=== PATIENT | female | born 1980 | race Caucasian/White ===

== ENCOUNTER 2018-06-29 09:46 | Day surgery (SDC) | payer OTHER ==
--- NOTE | 2018-06-28 21:15 | PDGENHP ---
History and Physical - Chief Complaint RIGHT HIP PAIN - History of Present Illness 1.~~~Bilateral~BL~Hip Dyplasia; RIGHT MORE SYMPTOMATIC 2.~~~Bilateral~Femoroacetabular impingement (ANDREW) Cam type,~with~resultant labral tear 3. Radiographic signs of Osteitis pubis HISTORY OF PRESENT ILLNESS: Lucasis a 37 y.o.~active female~who I have had the pleasure to consult on today. 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 ~Lucasenjoys walking, hiking, yoga and weight lifting. Dasia's~bilateral~hip pain (RIGHT>LEFT)~started several years ago, with~no~ recalled trauma or injury, and with no~previous complaints. Lucashas~a known history of hip dysplasia. 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 Presentation today is of~anterior, posterior, lateral~bilateral~hip pain.~~The hip~does~wake her~at night and does~click and catch on her. Sitting~does not present a problem~for her.~Lucasdoes not~report suffering from lower back pain episodes. Lucashas~participated in physical therapy (8 weeks)~and has not~tried other conservative measures. She~has not~received sufficient symptomatic improvement. Lucashas not~utilized medication for pain management.~ Lucasunderstands that she~has a hip and pelvis problem which should be researched and wishes to get a better understanding of her~hip status, followed by an establishment of a treatment strategy, hoping she~would be able to get back to her~well being active life. History: Past medical history:~~ None which is relevant~ Relevant familial history:~Sister with hip dysplasia Past surgical history:~ None Lucashas never received general anesthesia. I have reviewed, verified and agree with the past medical, surgical, family and social history. Current Medications:~has a current medication list which includes the following prescription(s): ibuprofen. ALLERGIES:~has No Known Allergies. Objective: Physical Examination: Lucasis 5~feet 9~inches tall and weighs 135~Lbs. Dasia~is AAO x3; she~is well- nourished, in NAD. Skin is warm and dry. ~Breathing is non-labored. ~CV with RRR by pulse. Abdomen is soft, NTND. Currently,~she~walks with a normal~gait. Trendelenburg sign is~negative~and proprioception is reduced,~right~side. She~presents with mild~signs of joint laxity. Beightons Score:~2 Lower spine examination is~negative~for sciatic or femoral nerve irritation with negative~SLR &~femoral stretch tests. Range of motion of the spine is normal~for flexion, extension, and rotations, with no~associated pain. Strength, Sensation and pulses are~normal -~bilaterally Ankles and knees exams are~normal~and no~mal-alignment is evident. She~has~right~1~cm short leg length discrepancy. Thigh circumference is~symmetric~with no evidence for muscle atrophy~on both~ sides. Hip ROM (degrees): FL ER At 90~hip FL IR At 90~hip FL AB AD EX IR Neutral hip ER Neutral hip R 110 40 40 35 10 10 50-55 20 L 110 50 30 30 5 10 50-55 25 Specific hip and pelvis tests: Impingement Test EVELYN Roll Add. Longus R +++ +++ Negative Negative L Negative Negative Negative Negative Glut. Med ITB R Negative 5/5 strength Negative 5/5 strength L +++ 5/5 strength +++ 5/5 strength Squeeze test measured~normal Bony Symphysis pubis is~pain free~to touch while concentric activity of the rectus abdominis, does not~produce pain at its insertion. Ilio Psos specific tests are~negative for pain during cycling for~both hips~and no snap. posterior~capsule tenderness RIGHT HIP Greater trochanteric burse is~pain free~on both hips. Piriformis tests: FAIR is~negative,~with no~local signs of neuritis related to sciatic nerve. SIJs examination is~normal~with normal~EVELYN in relation and local tenderness. Hamstrings tests are~negative~functional contraction and negative~tendinopathy both hips. Imaging: Radiology studies which I have personally reviewed, analyzed and measured are below: XR: AP of the hip and pelvis: Performed in a~good~technique Coccyx to pubic symphysis distance~1~cm. 0~degrees [place] Lines are~preserved. Minimal~Pathological signs are seen in the Symphysis Pubis. Minimal~Pathological signs are seen at the Ischial tuberosity. ~ Specific measurements show: NSA~ LCE Sourcil~Angle Sharp's angle Lat. Cam Lat. Pincer C.Over~sign Head~Coverage % ATDmm R N 24 7 45 + - - 74 N L N 22 10 44 + - - 74 N Pos. wall sign ISS NAD ~~Dysplasia Comments R Negative Negative 23.6~mm ++ L Negative Negative 20.5~mm ++ Sclerosis Sup. Lat. OA Cysts Joint Space-WBZ Joint Space-Medial R Negative Negative Negative 4.1~mm 4.4~mm L Negative Negative Negative 4.1~mm 4.7~mm Osteitis pubis X Table lateral: Anterior cam lesion is~seen~on both hips. Alpha Angle: ~ Right~54~dergrees Left~55~degrees Impression and plan: ~ Lucasis a 37 y.o.~active female~suffering from symptomatic Bilateral~hip pain due to BL~Hip Dyplasia~and~Femoroacetabular impingement (ANDREW)~Cam type,~with~ resultant labral tear~causing significant disability to her~and altering her~ sport and life activities. Physical examination, imaging, and~her~story correspond with the diagnosis mentioned above. I explained that hip dysplasia is a condition wherein the hip joint has excessive play~and instability due to a variety of factors, including the depth and adequacy of the socket, the orientation of the femur bone, and ligament laxity around the hip joint. Dysplasia ranges in severity from borderline to cynthia, with treatment options being specific to the specific nature of the problem. Left untreated, the instability in the hip joint can cause progressive tearing of the labrum and deterioration of the surface cartilage, ultimately resulting in progressive osteoarthritis of the hip. I explained that femoroacetabular impingement (ANDREW - Cam type) arises due to a bony or soft tissue conflict between the femur (ball) and acetabulum (socket) caused by an abnormality in the shape of the femoral head and neck. Over time, repetitive impingement can result in damage to the labrum and adjacent surface cartilage within the socket, ultimately giving rise to progressive osteoarthritis of the hip. I explained that although a labral tear can be a source of pain, it is rarely the root of the problem and typically occurs secondary to an underlying abnormality in the shape and mechanics of the hip joint. I reviewed conservative treatment options for Dysplasia and ANDREW including activity modification to avoid positions of impingement or instability, physical therapy, non-steroidal anti-inflammatory medications, and various injections (corticosteroid and PRP) aimed at reducing inflammation in the hip joint or/and preventing dynamic instability and impingement. PRP injections may promote healing and reduce symptoms in certain cases but it will not repair chronically damaged tissue. Although these measures may help to buy time~and reduce current level of symptoms, they are not a definitive solution to the problem given the underlying abnormality in the shape of the hip joint. Patients who have failed conservative management and continue to experience symptoms are candidates for definitive surgical treatment, which may consist of hip arthroscopy alone or in combination with more invasive bony realignment procedures of the hip socket and/or femur called periacetabular osteotomy (ZECHARIAH) or derotational femoral osteotomy (DFO). Hip arthroscopy typically includes treating the labrum with either repair or reconstruction of the torn labrum; as well as addressing the underlying abnormalities by restoring the normal shape to the hip joint. If the cartilage is damaged a Microfracture surgical procedure may also be necessary to help stimulate the growth of fibrocartilage. If a patient requires a labral reconstruction or a Microfracture, the initial rehabilitation from the surgery may take longer, but the shelter results are typically favorable. Dasia~will review the info presented. In order to obtain more detailed information regarding the alignment, orientation, and shape of the bony hip and pelvis I will order a CT scan to be performed. The results of the CT scan, including femoral torsion and acetabular version measured values and 3D images, will aid me in deciding on the best treatment strategy and surgical pre-planning.~ In order to better evaluate the soft tissues and cartilage of the hip joint, I will order an MRI scan. Lucasis going to contact us after completing her~imaging studies. Lucasis happy with this plan. I have also supplied~her~with handouts, outlining the expected surgical treatment and rehab involved. I wish~Lucasall the best, ~~ Toni Clement, PAC History Information - Allergies/Home Medication List Allergies/Adverse Reactions: No Known Allergies Allergy (Verified 06/26/18 16:48) Home Medications: Cymbalta 30 MG (*) 06/26/18 [Last Taken Unknown] I have personally reviewed and updated: medical history - Social History Smoking Status: Former smoker Review of Systems Review of Systems: Physical Exam Physical Exam:
[2018-06-29] MEDS ORDERED: ceFAZolin 2 GM/DEXTROSE 100 ML IV ONE (09:51)
[2018-06-29] MEDS ORDERED: ACETAMINOPHEN 500 MG TAB PO ONE (09:51)
[2018-06-29] MEDS ORDERED: PREGABALIN 150 MG CAP PO ONE (09:51)
[2018-06-29] MEDS ORDERED: LR 1,000 ML IV ONE (09:52)
[2018-06-29] MEDS ORDERED: MIDAZOLAM 2 MG/2 ML VIAL IVP ONE (10:08)
--- NOTE | 2018-06-29 10:10 | PDANEPAE ---
ANE History of Present Illness Right hip pain ANE Past Medical History - Cardiovascular History Hx Hypertension: No Hx Arrhythmias: No Hx Chest Pain: No Hx Coronary Artery / Peripheral Vascular Disease: No Hx CHF / Valvular Disease: No Hx Palpitations: No Cardiovascular History Comment: BP RUNS LOW AND HAS CAUSED HOSPITALIZATION A COUPLE OF TIMES - Pulmonary History Hx COPD: No Hx Asthma/Reactive Airway Disease: No Hx Recent Upper Respiratory Infection: No Hx Oxygen in Use at Home: No Hx Sleep Apnea: No Sleep Apnea Screening Result - Last Documented: Negative - Neurologic History Hx Cerebrovascular Accident: No Hx Seizures: No Hx Dementia: No Neurologic History Comment: MIGRAINES - Endocrine History Hx Diabetes: No Hypothyroid: No Hyperthyroid: No Obesity: no - Renal History Hx Renal Disorders: No - Liver History Hx Hepatic Disorders: No - Neurological & Psychiatric Hx Hx Neurological and Psychiatric Disorders: Yes Neurological / Psychiatric History Comment: ANXIETY. DEPRESSION - Cancer History Hx Cancer: No - Congenital Disorder History Hx Congenital Disorders: No - GI History GERD: no Hx Gastrointestinal Disorders: No - Other Health History Other Health History: WEARS GLASSES/ CONTACTS - Chronic Pain History Chronic Pain: Yes (BILATERAL HIPS) - Surgical History Prior Surgeries: N/A ANE Review of Systems Review of systems is: negative Review of Systems: - Exercise capacity Exercise capacity: >=4 METS METS (RN): 4 METS ANE Patient History - Allergies Allergies/Adverse Reactions: No Known Allergies Allergy (Verified 06/26/18 16:48) - Home Medications Home medications: home medication list seen and reviewed Home Medications: Cymbalta 30 MG (*) 06/26/18 [Last Taken Unknown] - Family Anes Hx Family Anes Hx: none Family Hx Anesthesia Complications: NONE ANE Labs/Vital Signs - Vital Signs Height: 175.26 cm Weight: 61.235 kg ANE Physical Exam - Airway Neck exam: FROM Mallampati Score: Class 2 Mouth exam: normal dental/mouth exam, small mouth opening - Pulmonary Pulmonary: no respiratory distress - Cardiovascular Cardiovascular: regular rate and rhythym - ASA Status ASA Status: I ANE Anesthesia Plan Anesthesia Plan: general endotracheal anesthesia
[2018-06-29] MEDS ORDERED: fentaNYL 100 MCG/2 ML INJ ONE ×2 (10:19→13:07)
[2018-06-29] MEDS ORDERED: PROPOFOL 200 MG/20 ML VIAL ONE (10:19)
[2018-06-29] MEDS ORDERED: LIDOCAINE 2% 2 ML INJ ONE ×2 (10:22)
[2018-06-29] MEDS ORDERED: ROCURONIUM 50 MG/5 ML VIAL ONE (10:23)
[2018-06-29] MEDS ORDERED: ONDANSETRON 4 MG/2 ML VIAL ONE (10:24)
[2018-06-29] MEDS ORDERED: BUPIVACAINE/EPI 0.25% 30 ML SDV ONE (11:52)
[2018-06-29] MEDS ORDERED: EPINEPHrine 30 MG/30 ML MDV (0.1 MG/0.1 ML) ONE (11:52)
[2018-06-29] MEDS ORDERED: ePHEDrine SULFATE 25 MG/5 ML SYR ONE (12:15)
[2018-06-29] MEDS ORDERED: METOCLOPRAMIDE 10 MG/2 ML VIAL IVP PRN (13:23)
[2018-06-29] MEDS ORDERED: PROMETHAZINE HCL 25 MG/ML INJ IVP PRN (13:23)
[2018-06-29] MEDS ORDERED: ALBUTEROL 3 ML DEYVIAL IH PRN (13:23)
[2018-06-29] MEDS ORDERED: oxyCODONE IR 5 MG TAB PO PRN (13:23)
[2018-06-29] MEDS ORDERED: PHENYLEPHRINE HCL 100 MCG/ML SYR IVP PRN (13:23)
[2018-06-29] MEDS ORDERED: NALOXONE HCL 0.4 MG/ML INJ IVP PRN (13:23)
[2018-06-29] MEDS ORDERED: fentaNYL 100 MCG/2 ML INJ IVP PRN (13:23)
[2018-06-29] MEDS ORDERED: ACETAMINOPHEN 500 MG TAB PO PRN (13:23)
[2018-06-29] MEDS ORDERED: LR 500 ML IV PRN (13:23)
[2018-06-29] MEDS ORDERED: HYDROmorphONE/DILAUDID 2 MG/ML INJ ONE (14:49)
[2018-06-29] MEDS: HYDROmorphONE/DILAUDID 2 MG/ML INJ IVP PRN ×2 (14:51→15:02)
[2018-06-29] MEDS ORDERED: MEPERIDINE 25 MG/0.5 ML AMP ONE ×2 (14:55→15:08)
[2018-06-29] MEDS: MEPERIDINE 25 MG/0.5 ML AMP IVP PRN ×2 (14:55→15:08)
--- NOTE | 2018-06-29 15:42 | POSTOPPROG ---
Post Op Note Date of Operation: 06/29/18 Surgeon: Jordy Huertas [employer] Instructor: Dr. Isaacs Anesthesia: GET(General Endotracheal) Pre-op Diagnosis: Right ANDREW Post-op Diagnosis: Right ANDREW Procedure: Right Hip Arthroscopy Inf/Abcess present in the surg proc area at time of surgery?: No
--- NOTE | 2018-06-29 15:51 | POSTANESTH ---
Post Anesthetic Evaluation Cardiovascular Status: Normal, Stable Respiratory Status: Normal, Stable Level of Consciousness/Mental Status: Can Participate in Eval Pain Control: Adequate, Prn Tx Ordered Nausea/Vomiting Control: Adequate, Prn Tx Ordered Complications Possibly Related to Anesthesia: None Noted
[2018-06-29 17:17] VITALS: BP 117/67
== END 2018-06-29 17:15 | disposition home or self-care (01) ==
LOC: FSGY 09:46
PROVIDERS: ATTEND Orthopaedic Surgery Sports Medicine
PROC: BQ10YZZ Fluoroscopy of Right Hip using Other Contrast (ICD-10-PCS; principal; 2018-06-29 11:00)
PROC: 0SB94ZZ Excision of Right Hip Joint, Percutaneous Endoscopic Approach (ICD-10-PCS; principal; 2018-06-29 11:00)
PROC: 0SQ94ZZ Repair Right Hip Joint, Percutaneous Endoscopic Approach (ICD-10-PCS; principal; 2018-06-29 11:00)
DX: M25.851 Other specified joint disorders, right hip (principal); Q65.89 Other specified congenital deformities of hip; G43.909 Migraine, unspecified, not intractable, without status migrainosus; F41.9 Anxiety disorder, unspecified; F32.9 Major depressive disorder, single episode, unspecified; Z87.891 Personal history of nicotine dependence
CPT/HCPCS: C1713; J0171; J0690; J1170; J2175; J2250; J2405; J2704; J3010

== ENCOUNTER 2018-07-06 06:51 | Inpatient (IN) | payer OTHER ==
--- NOTE | 2018-07-05 21:22 | PDGENHP ---
History and Physical - Chief Complaint RIGHT HIP PAIN - History of Present Illness 1.~~~Bilateral~BL~Hip Dyplasia; RIGHT MORE SYMPTOMATIC 2.~~~Bilateral~Femoroacetabular impingement (ANDREW) Cam type,~with~resultant labral tear 3. Radiographic signs of Osteitis pubis HISTORY OF PRESENT ILLNESS: Lucasis a 37 y.o.~active female~who I have had the pleasure to consult on today. 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 ~Lucasenjoys walking, hiking, yoga and weight lifting. Dasia's~bilateral~hip pain (RIGHT>LEFT)~started several years ago, with~no~ recalled trauma or injury, and with no~previous complaints. Lucashas~a known history of hip dysplasia. 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 Presentation today is of~anterior, posterior, lateral~bilateral~hip pain.~~The hip~does~wake her~at night and does~click and catch on her. Sitting~does not present a problem~for her.~Lucasdoes not~report suffering from lower back pain episodes. Lucashas~participated in physical therapy (8 weeks)~and has not~tried other conservative measures. She~has not~received sufficient symptomatic improvement. Lucashas not~utilized medication for pain management.~ Lucasunderstands that she~has a hip and pelvis problem which should be researched and wishes to get a better understanding of her~hip status, followed by an establishment of a treatment strategy, hoping she~would be able to get back to her~well being active life. History: Past medical history:~~ None which is relevant~ Relevant familial history:~Sister with hip dysplasia Past surgical history:~ None Lucashas never received general anesthesia. I have reviewed, verified and agree with the past medical, surgical, family and social history. Current Medications:~has a current medication list which includes the following prescription(s): ibuprofen. ALLERGIES:~has No Known Allergies. Objective: Physical Examination: Lucasis 5~feet 9~inches tall and weighs 135~Lbs. Dasia~is AAO x3; she~is well- nourished, in NAD. Skin is warm and dry. ~Breathing is non-labored. ~CV with RRR by pulse. Abdomen is soft, NTND. Currently,~she~walks with a normal~gait. Trendelenburg sign is~negative~and proprioception is reduced,~right~side. She~presents with mild~signs of joint laxity. Beightons Score:~2 Lower spine examination is~negative~for sciatic or femoral nerve irritation with negative~SLR &~femoral stretch tests. Range of motion of the spine is normal~for flexion, extension, and rotations, with no~associated pain. Strength, Sensation and pulses are~normal -~bilaterally Ankles and knees exams are~normal~and no~mal-alignment is evident. She~has~right~1~cm short leg length discrepancy. Thigh circumference is~symmetric~with no evidence for muscle atrophy~on both~ sides. Hip ROM (degrees): FL ER At 90~hip FL IR At 90~hip FL AB AD EX IR Neutral hip ER Neutral hip R 110 40 40 35 10 10 50-55 20 L 110 50 30 30 5 10 50-55 25 Specific hip and pelvis tests: Impingement Test EVELYN Roll Add. Longus R +++ +++ Negative Negative L Negative Negative Negative Negative Glut. Med ITB R Negative 5/5 strength Negative 5/5 strength L +++ 5/5 strength +++ 5/5 strength Squeeze test measured~normal Bony Symphysis pubis is~pain free~to touch while concentric activity of the rectus abdominis, does not~produce pain at its insertion. Ilio Psos specific tests are~negative for pain during cycling for~both hips~and no snap. posterior~capsule tenderness RIGHT HIP Greater trochanteric burse is~pain free~on both hips. Piriformis tests: FAIR is~negative,~with no~local signs of neuritis related to sciatic nerve. SIJs examination is~normal~with normal~EVELYN in relation and local tenderness. Hamstrings tests are~negative~functional contraction and negative~tendinopathy both hips. Imaging: Radiology studies which I have personally reviewed, analyzed and measured are below: XR: AP of the hip and pelvis: Performed in a~good~technique Coccyx to pubic symphysis distance~1~cm. 0~degrees [place] Lines are~preserved. Minimal~Pathological signs are seen in the Symphysis Pubis. Minimal~Pathological signs are seen at the Ischial tuberosity. ~ Specific measurements show: NSA~ LCE Sourcil~Angle Sharp's angle Lat. Cam Lat. Pincer C.Over~sign Head~Coverage % ATDmm R N 24 7 45 + - - 74 N L N 22 10 44 + - - 74 N Pos. wall sign ISS NAD ~~Dysplasia Comments R Negative Negative 23.6~mm ++ L Negative Negative 20.5~mm ++ Sclerosis Sup. Lat. OA Cysts Joint Space-WBZ Joint Space-Medial R Negative Negative Negative 4.1~mm 4.4~mm L Negative Negative Negative 4.1~mm 4.7~mm Osteitis pubis X Table lateral: Anterior cam lesion is~seen~on both hips. Alpha Angle: ~ Right~54~dergrees Left~55~degrees Impression and plan: ~ Lucasis a 37 y.o.~active female~suffering from symptomatic Bilateral~hip pain due to BL~Hip Dyplasia~and~Femoroacetabular impingement (ANDREW)~Cam type,~with~ resultant labral tear~causing significant disability to her~and altering her~ sport and life activities. Physical examination, imaging, and~her~story correspond with the diagnosis mentioned above. I explained that hip dysplasia is a condition wherein the hip joint has excessive play~and instability due to a variety of factors, including the depth and adequacy of the socket, the orientation of the femur bone, and ligament laxity around the hip joint. Dysplasia ranges in severity from borderline to cynthia, with treatment options being specific to the specific nature of the problem. Left untreated, the instability in the hip joint can cause progressive tearing of the labrum and deterioration of the surface cartilage, ultimately resulting in progressive osteoarthritis of the hip. I explained that femoroacetabular impingement (ANDREW - Cam type) arises due to a bony or soft tissue conflict between the femur (ball) and acetabulum (socket) caused by an abnormality in the shape of the femoral head and neck. Over time, repetitive impingement can result in damage to the labrum and adjacent surface cartilage within the socket, ultimately giving rise to progressive osteoarthritis of the hip. I explained that although a labral tear can be a source of pain, it is rarely the root of the problem and typically occurs secondary to an underlying abnormality in the shape and mechanics of the hip joint. I reviewed conservative treatment options for Dysplasia and ANDREW including activity modification to avoid positions of impingement or instability, physical therapy, non-steroidal anti-inflammatory medications, and various injections (corticosteroid and PRP) aimed at reducing inflammation in the hip joint or/and preventing dynamic instability and impingement. PRP injections may promote healing and reduce symptoms in certain cases but it will not repair chronically damaged tissue. Although these measures may help to buy time~and reduce current level of symptoms, they are not a definitive solution to the problem given the underlying abnormality in the shape of the hip joint. Patients who have failed conservative management and continue to experience symptoms are candidates for definitive surgical treatment, which may consist of hip arthroscopy alone or in combination with more invasive bony realignment procedures of the hip socket and/or femur called periacetabular osteotomy (ZECHARIAH) or derotational femoral osteotomy (DFO). Hip arthroscopy typically includes treating the labrum with either repair or reconstruction of the torn labrum; as well as addressing the underlying abnormalities by restoring the normal shape to the hip joint. If the cartilage is damaged a Microfracture surgical procedure may also be necessary to help stimulate the growth of fibrocartilage. If a patient requires a labral reconstruction or a Microfracture, the initial rehabilitation from the surgery may take longer, but the senior care results are typically favorable. Dasia~will review the info presented. In order to obtain more detailed information regarding the alignment, orientation, and shape of the bony hip and pelvis I will order a CT scan to be performed. The results of the CT scan, including femoral torsion and acetabular version measured values and 3D images, will aid me in deciding on the best treatment strategy and surgical pre-planning.~ In order to better evaluate the soft tissues and cartilage of the hip joint, I will order an MRI scan. Lucasis going to contact us after completing her~imaging studies. Lucasis happy with this plan. I have also supplied~her~with handouts, outlining the expected surgical treatment and rehab involved. I wish~Lucasall the best, ~~ Toni Clement, PAC History Information - Allergies/Home Medication List Allergies/Adverse Reactions: No Known Allergies Allergy (Verified 07/03/18 14:38) Home Medications: Cymbalta 30 MG (*) 06/26/18 [Last Taken 06/29/18 07:30] I have personally reviewed and updated: medical history - Social History Smoking Status: Never smoked Review of Systems Review of Systems: Physical Exam Physical Exam:
[~2018-07-06 06:51] MED LIST: ACETAMINOPHEN 500 MG TAB PO ONE; LR 1,000 ML IV ONE; PREGABALIN 150 MG CAP PO ONE; SCOPOLAMINE HYDROBROMIDE 1 MG/3 DAYS PATCH TD ONE; TRANEXAMIC ACID 1,000 MG in NS 100 ML IV ONE; ceFAZolin 2 GM/DEXTROSE 100 ML IV ONE
[2018-07-06] MEDS ORDERED: CITRATE DEXTROSE SOLN 500 ML BAG ONE (07:03)
[2018-07-06] MEDS ORDERED: MIDAZOLAM 2 MG/2 ML VIAL ONE (07:05)
[2018-07-06] MEDS ORDERED: MIDAZOLAM 2 MG/2 ML VIAL IVP ONE (07:06)
--- NOTE | 2018-07-06 07:06 | PDANEPAE ---
ANE History of Present Illness Right hip ZECHARIAH for hip DJD ANE Past Medical History - Cardiovascular History Hx Hypertension: No Hx Arrhythmias: No Hx Chest Pain: No Hx Coronary Artery / Peripheral Vascular Disease: No Hx CHF / Valvular Disease: No Hx Palpitations: No Cardiovascular History Comment: bp runs low and has caused hospitalization a couple of times - Pulmonary History Hx COPD: No Hx Asthma/Reactive Airway Disease: No Hx Recent Upper Respiratory Infection: No Hx Oxygen in Use at Home: No Hx Sleep Apnea: No Sleep Apnea Screening Result - Last Documented: Negative - Neurologic History Hx Cerebrovascular Accident: No Hx Seizures: No Hx Dementia: No Neurologic History Comment: hx of migraines - Endocrine History Hx Diabetes: No - Renal History Hx Renal Disorders: No - Liver History Hx Hepatic Disorders: No - Neurological & Psychiatric Hx Hx Neurological and Psychiatric Disorders: Yes Neurological / Psychiatric History Comment: anxiety. depression - Cancer History Hx Cancer: No - Congenital Disorder History Hx Congenital Disorders: Yes Congenital History Comment: hip dysplasia - GI History Hx Gastrointestinal Disorders: No - Other Health History Other Health History: wears glasses/ contacts - Chronic Pain History Chronic Pain: Yes (bilateral hips) - Surgical History Prior Surgeries: 06/29/18 right hip scope with Aleksandar ALEXANDRE Review of Systems Review of Systems: - Exercise capacity METS (RN): 4 METS ANE Patient History - Allergies Allergies/Adverse Reactions: No Known Allergies Allergy (Verified 07/03/18 14:38) - Home Medications Home Medications: Cymbalta 30 MG (*) 06/26/18 [Last Taken 06/29/18 07:30] - Smoking Hx Smoking Status: Never smoked - Family Anes Hx Family Hx Anesthesia Complications: none ANE Labs/Vital Signs - Vital Signs Height: 175.26 cm Weight: 61.235 kg ANE Physical Exam - Airway Neck exam: FROM Mallampati Score: Class 1 Mouth exam: normal dental/mouth exam - Pulmonary Pulmonary: no respiratory distress - Cardiovascular Cardiovascular: regular rate and rhythym - ASA Status ASA Status: I ANE Anesthesia Plan Anesthesia Plan: general endotracheal anesthesia Total IV Anesthesia: No
[2018-07-06] MEDS ORDERED: ROCURONIUM 100 MG/10 ML VIAL ONE (07:11)
[2018-07-06] MEDS ORDERED: PHENYLEPHRINE 10 MG/ML SDV ONE ×2 (07:11→11:10)
[2018-07-06] MEDS ORDERED: LIDOCAINE 2% 5 ML SDV ONE (07:11)
[2018-07-06] MEDS ORDERED: PROPOFOL 200 MG/20 ML VIAL ONE ×2 (07:12→12:05)
[2018-07-06] MEDS ORDERED: fentaNYL 100 MCG/2 ML INJ ONE (07:12)
[2018-07-06] MEDS ORDERED: morphINE PF 5 MG/10 ML INJ ONE (07:15)
[2018-07-06] MEDS ORDERED: ONDANSETRON 4 MG/2 ML VIAL ONE (11:09)
[2018-07-06] MEDS ORDERED: ROCURONIUM 50 MG/5 ML VIAL ONE (11:09)
[2018-07-06] MEDS ORDERED: DEXAMETHASONE 4 MG/ML VIAL ONE (11:09)
[2018-07-06] MEDS ORDERED: NALOXONE HCL 0.4 MG/ML INJ IVP PRN ×3 (11:56→15:30)
[2018-07-06] MEDS ORDERED: DIAZEPAM 5 MG/ML 1 ML SYR IVP PRN (11:56)
[2018-07-06] MEDS ORDERED: oxyCODONE IR 5 MG TAB PO PRN (11:56)
[2018-07-06] MEDS ORDERED: fentaNYL 100 MCG/2 ML INJ IVP PRN (11:56)
[2018-07-06] MEDS ORDERED: PROMETHAZINE HCL 25 MG/ML INJ IVP PRN (11:56)
[2018-07-06] MEDS ORDERED: MEPERIDINE 25 MG/0.5 ML AMP IVP PRN (11:56)
[2018-07-06] MEDS ORDERED: SUGAMMADEX SODIUM 200 MG/2 ML VIAL IVP ONE (12:05)
--- NOTE | 2018-07-06 12:32 | POSTANESTH ---
Post Anesthetic Evaluation Cardiovascular Status: Normal, Stable Respiratory Status: Normal, Stable Level of Consciousness/Mental Status: Can Participate in Eval Pain Control: Adequate, Prn Tx Ordered Nausea/Vomiting Control: Adequate, Prn Tx Ordered Complications Possibly Related to Anesthesia: None Noted (Awake and responsive in OR, neuro exam by PA intact)
[2018-07-06] MEDS ORDERED: LACTULOSE 20 GM/30 ML UDCUP PO PRN (12:33)
[2018-07-06] MEDS ORDERED: ONDANSETRON DISINTEGRATING 4 MG TAB PO PRN (12:33)
[2018-07-06] MEDS ORDERED: BISACODYL 10 MG SUPP PR PRN (12:33)
[2018-07-06] MEDS ORDERED: ACETAMINOPHEN 325 MG TAB PO PRN (12:33)
[2018-07-06] MEDS ORDERED: ONDANSETRON 4 MG/2 ML VIAL IVP PRN ×2 (12:33→15:30)
[2018-07-06] MEDS ORDERED: MAGNESIUM HYDROXIDE 30 ML UDCUP PO PRN (12:33)
[2018-07-06] MEDS ORDERED: HYDROmorphONE/DILAUDID 6 MG/30 ML PCA IV PRN (12:33)
[2018-07-06] MEDS ORDERED: PROMETHAZINE HCL 25 MG/ML INJ ONE (12:39)
--- NOTE | 2018-07-06 14:14 | PDMN ---
Medical Necessity Medical necessity: MCG: LYNN musculoskeletal sgy OP: ZECHARIAH-Kelvin AUTH# [id number] APPROVED FOR CPT 41143 DONE INT LOS 1 DAY
[2018-07-06] MEDS ORDERED: ALBUMIN 5% 500 ML IV ONE (14:30)
[2018-07-06] MEDS ORDERED: RN MESSAGE:REGARDING ANALGESIC ORDERING DR MISC SCH (15:30)
[2018-07-06] MEDS ORDERED: METOCLOPRAMIDE 10 MG/2 ML VIAL IVP PRN (15:30)
[2018-07-06] MEDS: RN MESSAGE:DATE/TIME OF ADMIN MISC SCH (16:30)
--- NOTE | 2018-07-06 20:29 | SUROPNOTE ---
SUZETTE Operative Report - Surgery Surgery was performed at [facility] on~07/06/18~ Diagnosis:~Right 1. Hip Acetabular Dysplasia ~ Operation: Right~Laura Acetabular Osteotomy (ZECHARIAH) Surgeon: Jordy Huertas MD Logging Equipment Operator:~~Ariane Isaacs MD Anesthetic: General +~spinal Procedure: General anesthetic. Antibiotics given. Cell saver in use. Fluoroscopy. Phase 1: Position lateral, diagonal skin incision between ischial tuberosity and greater trochanter as for posterior hip approach. Blunt split of glut max fibers. Identification of fat pad overlying sciatic nerve. Exposure of sciatic nerve under fat pad, gently retracting it away-medially to ischial tuberosity. Exposure of subcotoloid fossa proximal to short rotators. Using osteotomes and under fluoroscopy, osteotomy of subcotoloid fossa to sciatic notch proximal to ischial spine. Closure of lateral cut. Patient is turned supine. Phase 2: Skin incision just distal to ASIS. Using diathermy the iliac spine was exposed and inguinal ligament + Sartorious were retracted medially, taking the LFCN with them, protecting it. Inner ilium was dissected from iliacus muscle bluntly , with a cob and swab. Dissection continued towards lateral superior ramus pubis. Using fluoroscopy an osteotomy of lateral superior ramus, just medial to tear drop, was performed with~curved fish mouth osteotome. Phase 3: Osteotomy lines of the ilium were marked with diathermy as pre planned according to XR/CT and expected correction of acatabulum. 2 Shanz screws were drilled into central acetabular fragment, corresponding with planned correction angles, in order to mobilize central acetabular fragment after osteotomy is complete. ~Iliac osteotomy was performed with reciprocating saw and the main acetabular fragment was moved to realign weight bearing position. After confirmation of correction using fluoroscopy in AP and false profile planes, the fragment was fixed with 2 -~5.5mm~~full threaded~screws~and 1 -~4mm~~full threaded~screw. Inguinal ligament and Sartorious were attached back to ASIS through drill holes. Incision was closed according to soft tissue layers. Skin was closed with~subdermal Monocryl. Final fluoro shots were obtained to confirm position/correction. After surgery~Dasia~moved both lower limbs and had no NV motor compromise. Specimen - none Bleeding -~900ml Complication - none Evaluation under anesthesia: IR at 90 degrees hip flexion prior to ZECHARIAH was~45~degrees and after ZECHARIAH was 25-30 ~degrees. Bleeding:~900~cc into cell-saver, 500~of blood products were returned to patient. Post op instructions: 1.~toe touch~weight bearing crutches till XR before discharge, then 50% WB 2. Epidural analgesia for 24-48 hours 3. Continuous SCD 4. Aspirin 81 mg X1 day once Epidural is discontinued 5. Avoid hip flexion past 90 and hip External rotation. 6. PT according to my recommendations at follow up visit Kind regards, Dr. Jordy Huertas .
[2018-07-06] MEDS: SENNOSIDES/DOCUSATE SODIUM TAB PO SCH (21:23)
[2018-07-07] MEDS: NS 1,000 ML IV SCH ×3 (00:15→21:45)
[2018-07-07] MEDS: RN MESSAGE:DATE/TIME OF ADMIN MISC SCH ×2 (02:31→15:52)
[2018-07-07] MEDS: PANTOPRAZOLE SODIUM 40 MG TAB PO SCH (08:10)
[2018-07-07] MEDS: SENNOSIDES/DOCUSATE SODIUM TAB PO SCH ×2 (08:10→21:38)
[2018-07-07] MEDS: DULoxetine 30 MG CAP PO SCH (08:36)
[2018-07-07] MEDS: oxyCODONE IR 5 MG TAB PO SCH ×4 (09:46→21:39)
--- NOTE | 2018-07-07 11:43 | POSTANESTH ---
Post Anesthetic Evaluation Cardiovascular Status: Normal, Stable, Similar to Pre-Op Cond Respiratory Status: Normal, Stable, Similar to Pre-op Cond., Requires Airway Assist Level of Consciousness/Mental Status: Alert and Oriented Pain Control: Adequate, Prn Tx Ordered Nausea/Vomiting Control: Adequate, Prn Tx Ordered Complications Possibly Related to Anesthesia: None Noted Notes: Back site c/d/i, no e/e/e. Able to sit up with assistance. Pain well controlled overnight, minimal PIANO MAKER usage. No ill effects from neuraxial narcotic.
--- NOTE | 2018-07-07 13:02 | GCON ---
REFERRING PHYSICIAN: Jordy Huertas MD REASON FOR CONSULTATION: Medical management. HISTORY OF PRESENT ILLNESS: The patient is a 37-year-old woman without any significant past medical history, who describes having bilateral hip pain that started several years ago. 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 She has had ongoing right hip pain and is overall a very active woman. She has tried physical therapy without good results. On July 06, she had a right periacetabular osteotomy performed by Dr. Huertas. Overall, she is doing quite well. She did have some increased pain while getting out of bed, but it is well managed with the COMPUTATIONAL CHEMIST pump. She denies any chest pain, shortness of breath. No changes in her appetite. She usually has regular bowel movements. PAST MEDICAL HISTORY: None. PAST SURGICAL HISTORY: None. FAMILY HISTORY: Her mom is healthy. Her father is healthy. SOCIAL HISTORY: She has been for 11 years. She has 3 children. 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 She hikes and does yoga and likes to do weightlifting. She does not smoke. She has a few alcoholic drinks during the week. ALLERGIES: No known allergies. HOME MEDICATIONS: Tylenol 325 mg p.o. q.6 hours p.r.n., Percocet 1-2 tabs q.4- 6 hours p.r.n., Zofran ODT 4 mg q.6 hours p.r.n., naproxen 500 mg b.i.d., Valium 2 mg q.6 hours p.r.n., and Cymbalta 30 mg p.o. daily. REVIEW OF SYSTEMS: A 10-point review of systems was performed, was negative, other than the pertinent positives in the HPI and past medical history. PHYSICAL EXAM: GENERAL: The patient is a 37-year-old woman who appears to be in excellent health. VITAL SIGNS: Blood pressure is 113/48, heart rate of 110 , respiratory rate of 16. O2 sats on room air are 95%. Temperature is 36.5 Celsius. EYES: Pupils are equal and reactive. EOMs are intact. No conjunctival injection noted. ENT: Normal ears. Hearing intact. NECK: Trachea is midline. CARDIOVASCULAR: She is in a regular rate and rhythm. No murmurs, rubs, or gallops noted. She is not tachycardic during my interview. CHEST/LUNGS: Normal respiratory effort. Clear, without wheezing, rales, or rhonchi. ABDOMEN: Soft, nontender. SKIN: Dry and intact. EXTREMITIES: Her right hip and right upper thigh area have some swelling. MUSCULOSKELETAL: She has equal upper extremity strength. Her lower strength was not evaluated. PSYCHIATRIC: She is alert and oriented. Normal mood, affect. Normal judgment , insight and normal memory. DATA REVIEWED: Chemistry shows a sodium of 139, potassium 3.8, chloride of 108 , BUN of 13, creatinine of 0.6, calcium 7.8. CBC: White blood cell count is 7.58, hemoglobin 8.5, hematocrit 25.3, platelet count of 25.3. ASSESSMENT/PLAN: 1. Postoperative anemia. Will follow labs throughout her stay. She is asymptomatic of it at this time. 2. Thrombocytopenia. Further followup. 3. Right hip dysplasia. She is status post a right periacetabular osteotomy, care per orthopedics team. 4. Pain due to this. She is on a COMPUTATIONAL CHEMIST. I explained to her the importance of being on a bowel protocol to avoid constipation. 5. Deep venous thrombosis prophylaxis, on aspirin therapy. Thank you for this consultation. The hospitalist will continue to follow this delightful patient during her stay. /[id number]/MODL MTDD
--- NOTE | 2018-07-07 21:36 | ASMTCMCOM ---
CM Note CM Note Notes: Pt had planned R ZECHARIAH, resides with spouse and children. PT rec home care/24 hr supervision, OT rec pending. CM to follow pt progress for d/c planning. Date Signed: 07/07/2018 04:11 PM Electronically Signed By:NUNO Weber
[2018-07-08] MEDS: oxyCODONE IR 5 MG TAB PO SCH ×6 (01:43→21:46)
[2018-07-08 05:39] LABS: PLATELET COUNT 145 10^3/uL (150-400)
[2018-07-08] MEDS: DIAZEPAM 2 MG TAB PO PRN ×2 (07:01→21:46)
[2018-07-08] MEDS: DULoxetine 30 MG CAP PO SCH (10:05)
[2018-07-08] MEDS: POLYETHYLENE GLYCOL 3350 17 GM PKT PO PRN (10:05)
[2018-07-08] MEDS: SENNOSIDES/DOCUSATE SODIUM TAB PO SCH ×2 (10:06→21:46)
[2018-07-08] MEDS: PANTOPRAZOLE SODIUM 40 MG TAB PO SCH (10:06)
[2018-07-08] MEDS: NAPROXEN SODIUM 220 MG TAB PO SCH ×2 (14:34→21:46)
[2018-07-08] MEDS: ASPIRIN EC 81 MG TAB PO SCH (14:34)
--- NOTE | 2018-07-08 15:27 | HOSPPROG ---
Hospitalist Progress Note Assessment/Plan: Right hip dysplasia- management per primary/surgery Anemia- likely blood loss anemia. H/H up trending now. Patient with stable vitals/bp. Thrombocytopenia- also uptrending at this point. Will continue to monitor labs. Pain control- was on WORKERS COMPENSATION CLAIMS EXAMINER but appears to be off at this point. pain well controlled. PPX- asa Fluids- PO lytes- WNL Nutrition- regular Cor- Full Dispo- inpatient Subjective: patient says she is starting to feel better. First days she has felt okay getting up to the chair. No dizziness, or faintness. pain adequately controlled Objective: Vital Signs Temp Pulse Resp BP Pulse Ox 37.3 C 108 H 16 97/68 L 94 07/08/18 12:00 07/08/18 12:00 07/08/18 12:00 07/08/18 12:00 07/08/18 12:00 Laboratory Results 07/08/18 04:57 07/08/18 04:57 07/07/18 07/08/18 07/09/18 05:59 05:59 05:59 Intake Total 4050 600 Output Total 2525 4600 3250 Balance 1525 -4000 -3250 - Physical Exam Constitutional: no apparent distress, appears nourished, not in pain Eyes: PERRL, anicteric sclera, EOMI Ears, Nose, Mouth, Throat: moist mucous membranes, hearing normal, ears appear normal, no oral mucosal ulcers Cardiovascular: regular rate and rhythym, no murmur, rub, or gallop Respiratory: no respiratory distress, no rales or rhonchi, clear to auscultation Gastrointestinal: normoactive bowel sounds, soft, non-tender abdomen, no palpable masses Genitourinary: cabrera in urethra Skin: no rashes or abrasions, no fluctuance, no induration Musculoskeletal: full muscle strength, no muscle tenderness, normal joint ROM Neurologic: AAOx3, sensation intact bilaterally Psychiatric: interacting appropriately, not anxious, not encephalopathic, thought process linear Lymph, Heme, Immunologic: no cervical LAD, no supraclavicular LAD ICD10 Worksheet Patient Problems: Problems Problem Status Onset Blood loss anemia Acute - ICD10 Problem Qualifiers (1) Blood loss anemia
[2018-07-08] MEDS ORDERED: oxyCODONE IR 5 MG TAB PO SCH ×2 (16:00)
--- NOTE | 2018-07-08 18:08 | SOAPPROG ---
SOAP Progress Note Assessment/Plan: Assessment: 37 yo F POD #2 s/p R ZECHARIAH, doing well post-op Plan: Ok to continue cabrera until tomorrow given pain, amount of diuresis Continue pain control PO/IV Continue PT/OT -- will need to do stairs prior to d/c SCDs, ASA for DVT ppx AP pelvis XR tomorrow, needs to be cleared by Dr. Huertas Plan for d/c once cabrera out, pain controlled, XR cleared, safe from PT perspective - likely Friday at the earliest 07/08/18 18:04 Subjective: Pt reports having some pain, particularly when mobile. Stood with PT and sat in the chair for an hour, but was tired afterwards. Cabrera still in place given pain with mobility and high UOP. No CP, SOB, N/V. Objective: Vital Signs Temp Pulse Resp BP Pulse Ox 37.1 C 88 16 105/55 L 94 07/08/18 15:34 07/08/18 15:34 07/08/18 15:34 07/08/18 15:34 07/08/18 15:34 Laboratory Results 07/08/18 04:57 07/08/18 04:57 07/07/18 07/08/18 07/09/18 05:59 05:59 05:59 Intake Total 4050 600 450 Output Total 2525 4600 3250 Balance 1525 -4000 -2800 PE: Gen - NAD RLE - dressings c/d/i Distal 5/5 TA, GSC, EHL SILT throughout distally ICD10 Worksheet Patient Problems: Problems Problem Status Onset Blood loss anemia Acute
[2018-07-09] MEDS: oxyCODONE IR 5 MG TAB PO SCH ×7 (02:06→21:50)
[2018-07-09 05:17] LABS: PLATELET COUNT 141 10^3/uL (150-400)
[2018-07-09] MEDS: SENNOSIDES/DOCUSATE SODIUM TAB PO SCH ×2 (08:48→21:50)
[2018-07-09] MEDS: ASPIRIN EC 81 MG TAB PO SCH (08:48)
[2018-07-09] MEDS: PANTOPRAZOLE SODIUM 40 MG TAB PO SCH (08:48)
[2018-07-09] MEDS: DULoxetine 30 MG CAP PO SCH (08:48)
[2018-07-09] MEDS: NAPROXEN SODIUM 220 MG TAB PO SCH ×3 (08:49→21:50)
[2018-07-09] MEDS: NS 1,000 ML IV SCH (11:33)
--- NOTE | 2018-07-09 13:50 | ASMTCMCOM ---
CM Note CM Note Notes: Per PT, patient making good progress. She will likely discharge independently, but we will continue to check in re: home care. Case Management will follow. Date Signed: 07/09/2018 01:49 PM Electronically Signed By:Shy Hernandez RN
[2018-07-09] MEDS: POLYETHYLENE GLYCOL 3350 17 GM PKT PO PRN (15:25)
--- NOTE | 2018-07-09 21:22 | HOSPPROG ---
Hospitalist Progress Note Assessment/Plan: Right hip dysplasia- management per primary/surgery Anemia- likely blood loss anemia. H/H slightly back down, but no evidence of bleed. Checking iron studies and if iron low, will start ferrous sulfate. Thrombocytopenia- also uptrending at this point. Will continue to monitor labs. Pain control- was on VP PLATFORMS but appears to be off at this point. pain well controlled. PPX- asa Fluids- PO lytes- WNL Nutrition- regular Cor- Full Dispo- inpatient Subjective: patient continues to improve. still some pain but diminished. Objective: Vital Signs Temp Pulse Resp BP Pulse Ox 36.5 C 89 16 101/53 L 97 07/09/18 20:00 07/09/18 20:00 07/09/18 20:00 07/09/18 20:00 07/09/18 20:00 Laboratory Results 07/09/18 04:37 07/08/18 04:57 07/08/18 07/09/18 07/10/18 05:59 05:59 05:59 Intake Total 600 1250 1511 Output Total 4600 4250 2600 Balance -4000 -3000 -1089 - Physical Exam Constitutional: no apparent distress, appears nourished, not in pain Eyes: PERRL, anicteric sclera, EOMI Ears, Nose, Mouth, Throat: moist mucous membranes, hearing normal, ears appear normal, no oral mucosal ulcers Cardiovascular: regular rate and rhythym, no murmur, rub, or gallop Respiratory: no respiratory distress, no rales or rhonchi, clear to auscultation Gastrointestinal: normoactive bowel sounds, soft, non-tender abdomen, no palpable masses Genitourinary: no bladder fullness, no bladder tenderness, no renal bruits Skin: no rashes or abrasions, no fluctuance, no induration Musculoskeletal: full muscle strength, no muscle tenderness, normal joint ROM Neurologic: AAOx3, sensation intact bilaterally Psychiatric: interacting appropriately, not anxious, not encephalopathic, thought process linear Lymph, Heme, Immunologic: no cervical LAD, no supraclavicular LAD ICD10 Worksheet Patient Problems: Problems Problem Status Onset Blood loss anemia Acute - ICD10 Problem Qualifiers (1) Blood loss anemia
[2018-07-09] MEDS: DIAZEPAM 2 MG TAB PO PRN (21:49)
[2018-07-10] MEDS: oxyCODONE IR 5 MG TAB PO SCH ×6 (05:30→21:56)
[2018-07-10] MEDS: POLYETHYLENE GLYCOL 3350 17 GM PKT PO PRN (08:00)
[2018-07-10] MEDS: DULoxetine 30 MG CAP PO SCH (12:23)
[2018-07-10] MEDS: PANTOPRAZOLE SODIUM 40 MG TAB PO SCH (12:25)
[2018-07-10] MEDS: NAPROXEN SODIUM 220 MG TAB PO SCH ×3 (12:25→21:55)
[2018-07-10] MEDS: SENNOSIDES/DOCUSATE SODIUM TAB PO SCH ×2 (12:26→21:56)
[2018-07-10] MEDS: FERROUS SULFATE 325 MG TAB PO SCH (12:26)
[2018-07-10] MEDS: ASPIRIN EC 81 MG TAB PO SCH (12:27)
[2018-07-10] MEDS ORDERED: HYDROmorphONE/DILAUDID 1 MG/ML INJ IVP PRN (13:20)
--- NOTE | 2018-07-10 16:39 | SOAPPROG ---
SOAP Progress Note Assessment/Plan: Assessment: 37 yo F POD #4 s/p R ZECHARIAH, doing well post-op Plan: Continue pain control PO Continue PT/OT -- per pt, will do one more session of stairs tomorrow SCDs, ASA for DVT ppx AP pelvis XR cleared by Dr. Huertas Plan for d/c tomorrow after additional session of PT for stairs 07/10/18 16:36 Subjective: Pt reports she is feeling much better, was able to tolerate 30 min with PT today and practiced stairs. Off ENVIRONMENTAL PROFESSIONAL and pain controlled. Has not yet had a bowel movement, considering a suppository or enema prior to d/c. Objective: Vital Signs Temp Pulse Resp BP Pulse Ox 36.6 C 97 17 104/55 L 95 07/10/18 15:43 07/10/18 15:43 07/10/18 15:43 07/10/18 15:43 07/10/18 15:43 Laboratory Results 07/09/18 04:37 07/08/18 04:57 07/09/18 07/10/18 07/11/18 05:59 05:59 05:59 Intake Total 1250 1511 Output Total 4250 4900 1200 Balance -3000 -3536 -1200 PE: Gen - NAD RLE - Dressings c/d/i Mild lateral thigh numbness in LFCN distribution 5/5 TA, GSC, EHL Distal sensation intact ICD10 Worksheet Patient Problems: Problems Problem Status Onset Blood loss anemia Acute
--- NOTE | 2018-07-10 18:22 | HOSPPROG ---
Hospitalist Progress Note Assessment/Plan: Right hip dysplasia- management per primary/surgery Anemia- likely blood loss anemia. H/H slightly back down, but no evidence of bleed. Checking iron studies and if iron low, will start ferrous sulfate. Thrombocytopenia- also uptrending at this point. Will continue to monitor labs. Pain control- was on BILLET BED OPERATOR but appears to be off at this point. pain well controlled. Constipation- No BM since Friday. miralax, if no BM offer enema. PPX- asa Fluids- PO lytes- WNL Nutrition- regular Cor- Full Dispo- inpatient Subjective: having problems with constipation. no bm since Friday Objective: Vital Signs Temp Pulse Resp BP Pulse Ox 36.6 C 97 17 104/55 L 95 07/10/18 15:43 07/10/18 15:43 07/10/18 15:43 07/10/18 15:43 07/10/18 15:43 Laboratory Results 07/09/18 04:37 07/08/18 04:57 07/09/18 07/10/18 07/11/18 05:59 05:59 05:59 Intake Total 1250 1511 200 Output Total 4250 4900 1200 Balance -3000 -3389 -1000 - Physical Exam Constitutional: no apparent distress, appears nourished, not in pain Eyes: PERRL, anicteric sclera, EOMI Ears, Nose, Mouth, Throat: moist mucous membranes, hearing normal, ears appear normal, no oral mucosal ulcers Cardiovascular: regular rate and rhythym, no murmur, rub, or gallop Respiratory: no respiratory distress, no rales or rhonchi, clear to auscultation Gastrointestinal: normoactive bowel sounds, soft, non-tender abdomen, no palpable masses Genitourinary: no bladder fullness, no bladder tenderness, no renal bruits Skin: no rashes or abrasions, no fluctuance, no induration Musculoskeletal: full muscle strength, no muscle tenderness, normal joint ROM Neurologic: AAOx3, sensation intact bilaterally Psychiatric: interacting appropriately, not anxious, not encephalopathic, thought process linear Lymph, Heme, Immunologic: no cervical LAD, no supraclavicular LAD ICD10 Worksheet Patient Problems: Problems Problem Status Onset Blood loss anemia Acute - ICD10 Problem Qualifiers (1) Blood loss anemia
[2018-07-10] MEDS: DIAZEPAM 2 MG TAB PO PRN (21:55)
[2018-07-11] MEDS: oxyCODONE IR 5 MG TAB PO SCH ×3 (04:18→11:21)
[2018-07-11 08:03] VITALS: BP 98/57
[2018-07-11] MEDS: ASPIRIN EC 81 MG TAB PO SCH (09:26)
[2018-07-11] MEDS: FERROUS SULFATE 325 MG TAB PO SCH (09:26)
[2018-07-11] MEDS: PANTOPRAZOLE SODIUM 40 MG TAB PO SCH (09:26)
[2018-07-11] MEDS: DULoxetine 30 MG CAP PO SCH (09:26)
[2018-07-11] MEDS: NAPROXEN SODIUM 220 MG TAB PO SCH (09:26)
[2018-07-11] MEDS: SENNOSIDES/DOCUSATE SODIUM TAB PO SCH (09:27)
--- NOTE | 2018-07-11 14:59 | ASDISCHSUM ---
Discharge Information Plan Status:Home with No Needs Medically Cleared to Leave:07/10/2018 Discharge Date:07/11/2018 11:46 AM CM D/C Disposition:Home, Routine, Self-Care ADT D/C Disposition:Home, Routine, Self-Care Projected Discharge Date:07/11/2018 11:46 AM Transportation at D/C:Family Discharge Delay Reason: Follow-Up Date:07/11/2018 11:46 AM Discharge Slot: Final Diagnosis:hip dysplasia Placement Information Patient Contact Information Contact Name:ERIC Relationship: Address:[address] City:[place] Alternate Phone: State/Zip Code:[place] [address] Email: Financial Information Financial Class:BC Primary Plan Desc:[facility]WAY PLAN Primary Plan Number:[id number] Secondary Plan Desc: Secondary Plan Number: Assessment Information LACE LACE Length of stay for Answers: 4-6 days current admission Acuity / Level of Answers: Yes Care: Did the patient have an inpatient admission? Comorbidities - select Answers: Opioid dependence all that apply / Chronic pain Other Notes: hip dysplasia # of Emergency department Answers: 0 visits in the last 6 months Social determinants Answers: Mental health diagnosis (anxiety, depression, pers onality disorders, etc.) Score: 15 Date Signed: 07/11/2018 02:58 PM Electronically Signed By:Grace Fong [facility] Progress Note CM Note CM Note Notes: Pt had planned R ZECHARIAH, resides with spouse and children. PT rec home care/24 hr supervision, OT rec pending. CM to follow pt progress for d/c planning. Date Signed: 07/07/2018 04:11 PM Electronically Signed By:NUNO Weber [facility] CM Progress Note CM Note CM Note Notes: Per PT, patient making good progress. She will likely discharge independently, but we will continue to check in re: home care. Case Management will follow. Date Signed: 07/09/2018 01:49 PM Electronically Signed By:Shy Hernandez RN Case Management Discharge Plan Note Case Management Discharge Discharge Order Complete? Answers: Yes Patient to Obtain Answers: via Family Medications Transportation Arranged Answers: Family/Friends Transport will Pick (Date 07/11/2018 11:45 AM & Time) Family Notified Answers: Yes Discharge Comments Notes: Pt discharged home independently with support from . No CM needs noted at this time. Date Signed: 07/11/2018 02:58 PM Electronically Signed By:Grace Fong Intervention Information
== END 2018-07-11 11:46 | disposition home or self-care (01) | DRG 516 ==
LOC: F3N 06:51 → EDSTATUS 07:15 → F3N 15:13
PROVIDERS: ADMIT Orthopaedic Surgery Sports Medicine; ATTEND Orthopaedic Surgery Sports Medicine
PROC: 0QS404Z Reposition Right Acetabulum with Internal Fixation Device, Open Approach (ICD-10-PCS; principal; 2018-07-06 07:15)
DX: M25.851 Other specified joint disorders, right hip (principal); Q65.89 Other specified congenital deformities of hip; D62 Acute posthemorrhagic anemia; D69.6 Thrombocytopenia, unspecified; K59.00 Constipation, unspecified
CPT/HCPCS: 97116-GP; 97162-GP; 97165-GO; 97530-GO; 97530-GP; 97535-GO; C1713; J0690; J1100; J1170; J2250; J2270; J2274; J2370; J2405; J2550; J2704; J3010